=== PATIENT | female | born 1980 | race Caucasian/White ===

== ENCOUNTER 2025-03-08 22:15 | Emergency (ER) | payer OTHER ==
[~2025-03-08] VITALS: Ht 165.1 cm; Wt 59.9 kg
[2025-03-08 22:19] VITALS: BP 103/43
[2025-03-08 22:45] LABS: PLATELET COUNT (AUTO) 213 K/uL (179-408); RED BLOOD CELL COUNT(AUTO) 4.30 MIL/uL (3.63-4.92); RED CELL DISTRIBUTION WIDTH 13.5 % (12.3-17.7); WHITE BLOOD COUNT (AUTO) 6.8 K/uL (3.8-11.8)
[2025-03-08] MEDS: IV NORMAL SALINE 1000 ML BAG IV ONE (22:45)
[2025-03-08] MEDS ORDERED: SODIUM BICARBONATE 4.2 % (NEUT) 5 ML VIAL ONE (22:46)
[2025-03-08] MEDS ORDERED: CEFTRIAXONE /D5W 50ML IVPB **ER PYXIS IV ONE (22:46)
[2025-03-08] MEDS ORDERED: TDAP DIPH,PERTUSS,TET VAC/PF 0.5 ML DISP.SYRIN IM ONE (22:46)
[2025-03-08] MEDS ORDERED: ONDANSETRON 4 MG/2 ML VIAL ONE (22:46)
[2025-03-08] MEDS ORDERED: CEPH500T PO (22:48)
[2025-03-08 22:52] LABS: CREATININE 0.7 mg/dL (0.6-1.3); SODIUM SERUM 139.0 mmol/L (136-145); UREA NITROGEN, BLOOD 18.0 mg/dL (7-18)
[2025-03-08] MEDS: ONDANSETRON 4 MG/2 ML VIAL IV ONE (23:00)
[2025-03-08] MEDS: SODIUM BICARBONATE 4.2 % (NEUT) 5 ML VIAL TP ONE (23:00)
[2025-03-08] MEDS: LIDOCAINE HCL 2% 20 ML VIAL IJ ONE (23:00)
[2025-03-08] MEDS: TDAP DIPH,PERTUSS,TET VAC/PF 0.5 ML DISP.SYRIN IM ONE (23:19)
[2025-03-08 23:54] VITALS: BP 110/59; O2SAT 98
== END 2025-03-08 23:55 | disposition home or self-care (01) ==
LOC: ER 22:22
DX: S61.011A Laceration without foreign body of right thumb without damage to nail, initial encounter (principal); W26.9XXA Contact with unspecified sharp object(s), initial encounter; Y93.89 Activity, other specified; Y92.89 Other specified places as the place of occurrence of the external cause; Y99.9 Unspecified external cause status; R42 Dizziness and giddiness
CPT/HCPCS: 12002; 36415; 80048; 85025; 90471; 90715; 93005; 96365; 96375; 99284; J0696; J2405; J3490; J7040; A4606; A4663